=== PATIENT | male | born 2000 | race Asian ===

== ENCOUNTER 2019-03-22 01:13 | Emergency (ER) | payer SELFPAY ==
[~2019-03-22] VITALS: Ht 180.3 cm; Wt 72.6 kg
[2019-03-22 01:22] VITALS: BP 141/90
--- NOTE | 2019-03-22 01:22 | NUR ---
PT BIBFAMILY C/O SOB X 2 HOURS, PATIENT STATES HE HAS A HX OF ASTHMA. PT AOX4. NAD NOTED. PT ON MONITOR IN BED 10. WILL CONTINUE TO MONITOR.
[2019-03-22] MEDS ORDERED: ALBUTEROL FS 2.5 MG/3 ML VIAL.NEB NEB ONE (01:30)
[2019-03-22] MEDS ORDERED: ALBUTEROL FS 2.5 MG/3 ML VIAL.NEB ONE (01:36)
--- NOTE | 2019-03-22 01:39 | NUR ---
RT AT BEDSIDE
== END 2019-03-22 02:05 | disposition home or self-care (01) ==
LOC: ER 01:14
DX: J45.909 Unspecified asthma, uncomplicated (principal)